=== PATIENT | female | born 1960 | race Caucasian/White ===

== ENCOUNTER 2019-11-28 14:12 | Emergency (ER) | payer OTHER ==
[~2019-11-28] VITALS: Ht 160 cm; Wt 52.2 kg
--- NOTE | 2019-11-28 14:22 | NUR ---
CAME IN FOR CHEST PAIN, PRESSURE-LIKE RADIATING TO BACK, WITH SOB X 3 WEEKS, ON AND OFF, TO ER BED 9, HOOKED TO HEALTH UNDERWRITER AND POX, CHANGED TO HOSP GOWN, WARM BLANKET PROVIDED, DR NARAYAN AT BEDSIDE
[2019-11-28] MEDS ORDERED: ASPIRIN 81 MG TAB.CHEW PO ONE (14:30)
[2019-11-28 14:41] LABS: BASOPHILS % (AUTO) 0.4 % (0.0-2.0); EOSINOPHILS % (AUTO) 0.5 % (0.0-6.0); HEMATOCRIT 40 % (33-45); HEMOGLOBIN 13.3 g/dL (11.5-14.8); MEAN CORPUSCULAR HGB CONC 33 g/dl (31.0-36.0); MEAN CORPUSCULAR VOLUME 93 fL (82-100); MONOCYTES # (AUTO) 0.7 /CMM (0.1-1.30); MONOCYTES % (AUTO) 10.3 % (2.0-12.0); NEUTROPHILS # (AUTO) 4.3 /CMM (1.8-8.9); NEUTROPHILS % (AUTO) 60.8 % (43.0-81.0); PLATELET COUNT (AUTO) 143 /CMM (150-450); RED BLOOD CELL COUNT(AUTO) 4.28 MIL/uL (4.0-5.2); WHITE BLOOD COUNT (AUTO) 7.1 K/uL (4.3-11.0)
[2019-11-28] MEDS ORDERED: ASPIRIN 81 MG TAB.CHEW ONE (14:42)
--- NOTE | 2019-11-28 14:45 | NUR ---
FRONT DESK ADMINISTRATOR AT BEDSIDE
[2019-11-28 14:48] LABS: CALCIUM, SERUM 9.1 mg/dL (8.5-10.1); CARBON DIOXIDE 27 mmol/L (21-32); CHLORIDE 101 mmol/L (98-107); CREATININE 0.8 mg/dL (0.6-1.3); GLUCOSE 99 mg/dL (74-106); SODIUM SERUM 137 mmol/L (136-145); UREA NITROGEN, BLOOD 21 mg/dL (7-18)
--- NOTE | 2019-11-28 17:31 | NUR ---
2ND TROPONIN BLOOD DRAW DONE.
--- NOTE | 2019-11-28 18:27 | NUR ---
CALLED STAT LAB TO FOLLOW UP WITH 2ND TROPONIN RESULTS
--- NOTE | 2019-11-28 18:55 | NUR ---
IV removed. Catheter intact and site benign. Pressure and 4x4 applied to site. No bleeding noted.Patient discharged to home in stable condition. Written and verbal after care instructions given. Patient verbalizes understanding of instruction.
[2019-11-28 18:56] VITALS: BP 101/64
== END 2019-11-28 18:55 | disposition home or self-care (01) ==
LOC: ER 14:16
DX: R07.89 Other chest pain (principal); Z88.0 Allergy status to penicillin
CPT/HCPCS: 36415; 71045-TC; 80048-TC; 84484-TC; 85025-TC